=== PATIENT | female | born 1975 | race Caucasian/White ===

== ENCOUNTER 2016-08-07 16:28 | Emergency (ER) | payer BC ==
[~2016-08-07] VITALS: Ht 162.6 cm; Wt 84.8 kg
[2016-08-07] MEDS ORDERED: ERYTHROMYC1 APPLICAT RIGHT EYE (18:19)
[2016-08-07 18:39] VITALS: BP 142/109
== END 2016-08-07 18:39 | disposition home or self-care (01) ==
LOC: EME 16:28
DX: S05.01XA Injury of conjunctiva and corneal abrasion without foreign body, right eye, initial encounter (principal); X58.XXXA Exposure to other specified factors, initial encounter
CPT/HCPCS: 99281; 99284